=== PATIENT | female | born 1945 | race Caucasian/White ===

== ENCOUNTER 2017-12-11 07:58 | Emergency (ER) | payer OTHER ==
[~2017-12-11] VITALS: Ht 162.6 cm; Wt 86.2 kg
[2017-12-11] MEDS ORDERED: GLUCOVANCE 2.51 EACH ×2 (08:20→08:21)
[2017-12-11] MEDS ORDERED: JANUVIA100 MG (10:12)
[2017-12-11] MEDS ORDERED: MOBIC7.5 M1 (10:12)
[2017-12-11] MEDS ORDERED: TOPROL XL25 M1 (10:13)
[2017-12-11] MEDS ORDERED: PRAVASTATIN SOD10 MG (10:13)
[2017-12-11] MEDS ORDERED: SYNTHROID112 MCG (10:13)
== END 2017-12-11 12:45 | disposition home or self-care (01) ==
LOC: ER 07:58
DX: N20.1 Calculus of ureter (principal); K57.92 Diverticulitis of intestine, part unspecified, without perforation or abscess without bleeding

== ENCOUNTER 2019-11-04 11:29 | Inpatient (IN) | payer OTHER ==
[~2019-11-04] VITALS: Ht 162.6 cm; Wt 83.9 kg
[~2019-11-04 11:29] MED LIST: GLUCOVANCE 2.51 EACH; JANUVIA100 MG; MOBIC7.5 M1; PRAVASTATIN SOD10 MG; SYNTHROID112 MCG; TOPROL XL25 M1
[2019-11-04] MEDS ORDERED: FOLIC ACID0.8 M1 (11:52)
[2019-11-07] MEDS ORDERED: MEDROLPACK PO (09:11)
[2019-11-07] MEDS ORDERED: FLAGYL500MG PO (09:11)
[2019-11-07] MEDS ORDERED: ZOVIRAX800 M1 PO (09:11)
[2019-11-07] MEDS ORDERED: CIPRO500 MG PO (09:11)
[2019-11-07] MEDS ORDERED: INTESTINEX680 M1 PO (09:11)
== END 2019-11-07 10:01 | disposition home or self-care (01) | DRG 66 ==
LOC: ER 11:29 → SURH 21:32
PROVIDERS: ADMIT Internal Medicine
PROC: 8E0ZXY6 Isolation (ICD-10-PCS; principal; 2019-11-04)
PROC: 4A12X4Z Monitoring of Cardiac Electrical Activity, External Approach (ICD-10-PCS; 2019-11-04)
PROC: B030YZZ Magnetic Resonance Imaging (MRI) of Brain using Other Contrast (ICD-10-PCS; 2019-11-04)
PROC: B030ZZZ Magnetic Resonance Imaging (MRI) of Brain (ICD-10-PCS; 2019-11-04)
PROC: B020ZZZ Computerized Tomography (CT Scan) of Brain (ICD-10-PCS; 2019-11-04)
PROC: B345ZZZ Ultrasonography of Bilateral Common Carotid Arteries (ICD-10-PCS; 2019-11-04)
PROC: B348ZZZ Ultrasonography of Bilateral Internal Carotid Arteries (ICD-10-PCS; 2019-11-04)
PROC: B246ZZZ Ultrasonography of Right and Left Heart (ICD-10-PCS; 2019-11-04)
DX: I63.233 Cerebral infarction due to unspecified occlusion or stenosis of bilateral carotid arteries (principal); G51.0 Bell's palsy; R29.710 NIHSS score 10; Z88.0 Allergy status to penicillin; I07.1 Rheumatic tricuspid insufficiency
CPT/HCPCS: 70545